=== PATIENT | male | born 1985 | race Caucasian/White ===

== ENCOUNTER 2017-09-12 10:05 | Inpatient (IN) | payer OTHER ==
[~2017-09-12] VITALS: Ht 175.3 cm; Wt 65.4 kg
[~2017-09-12 10:05] MED LIST: BENTYL20 MG PO; CIPRO500 MG PO; FLAGYL500 MG PO; FLEXERIL10 MG PO; MOTRIN600 MG PO; NAPROSYN500 MG PO; NOHOMEMEDS; ULTRAM50 MG PO
[2017-09-12 10:31] LABS: BASOPHIL (%) 0.6 % (0-1); EOSINOPHIL (%) 1.6 % (0-5); EOSINOPHIL COUNT 0.1 K/uL (0-0.3); HEMATOCRIT 38.6 % (38.0-50.0); HEMOGLOBIN 14.1 G/DL (12.5-16.6); IMMATURE GRANULOCYTE (%) 0.3 % (0.0-0.7); LYMPHOCYTE (%) 31.5 % (15-42); LYMPHOCYTE COUNT 2.2 K/uL (1.0-2.8); MCH 31.7 PG (29.0-34.0); MCHC 36.5 G/DL (30.0-36.0); MCV 86.7 FL (86-99); MONOCYTE (%) 6.4 % (3-12); MONOCYTE COUNT 0.5 K/uL (0-0.8); NEUTROPHIL (%) 59.6 % (45-76); NEUTROPHIL COUNT 4.2 K/uL (1.8-6.4); RBC DIS.WIDTH-CV 11.6 % (11.8-14.6); RBC DIS.WIDTH-SD 36.7 % (39-53); RED BLOOD COUNT 4.45 M/uL (4.00-5.50); WHITE BLOOD COUNT 7.1 K/uL (4.1-10.2)
[2017-09-12 11:12] LABS: AMYLASE 46 IU/L (1-118); CHLORIDE 103 MEQ/L (99-109); POTASSIUM 3.8 MEQ/L (3.7-5.4); SODIUM 138 MEQ/L (136-147)
[2017-09-12 11:20] LABS: CREATININE 0.9 MG/DL (0.6-1.3); GFR ESTIMATE (CALCULATED) > 59 mL/min/ (58.99-99999); GLUCOSE 97 mg/dL (70-99); LIPASE 84 U/L (1.0-51.0); SERUM ETHYL ALCOHOL < 10 mg/dL; UREA NITROGEN (BUN) 15 mg/dL (9-23)
[2017-09-12 13:15] LABS: INTER. NORMALIZED RATIO 1.1
[2017-09-12 13:17] LABS: PTT 26.2 SEC (25-37)
[2017-09-12 13:30] LABS: APPEARANCE CLEAR ((CLEAR)); BILIRUBIN NEGATIVE; BLOOD NEGATIVE; COLOR STRAW ((YELLOW)); GLUCOSE (STRIP) NEGATIVE; KETONES NEGATIVE; LEUKOCYTES NEGATIVE; NITRITE NEGATIVE; PROTEIN (STRIP) NEGATIVE; SPECIFIC GRAVITY 1.036 (1.000-1.030); UCUL ADDED? NO; UROBILINOGEN 0.2 MG/DL (0.2-1.0)
[2017-09-12 13:33] LABS: PLAT.SUFFICIENCY ADEQUATE; PLATELET CLUMPS PRESENT - PLATELET COUNT APPEARS ADQ.; PLATELET COUNT UNABLE TO REPORT K/uL (156-360)
[2017-09-12 13:41] LABS: AMPHETAMINE NEGATIVE (500 ng/mL); BARBITURATES NEGATIVE (200 ng/mL); BENZODIAZEPINES NEGATIVE (150 ng/mL); BUPRENORPHINE NEGATIVE (10 ng/mL); COCAINE NEGATIVE (150 ng/mL); METHADONE NEGATIVE (200 ng/mL); METHAMPHETAMINE NEGATIVE (500 ng/mL); OPIATES (MORPHINE) NEGATIVE (100 ng/mL); OXYCODONE NEGATIVE (100 ng/mL); PHENCYCLIDINE NEGATIVE (25 ng/mL); PROPOXYPHENE NEGATIVE (300 ng/mL); THC CANNABINOIDS NEGATIVE (50 ng/mL); TRICYCLIC ANTIDEPRESSANTS NEGATIVE (300 ng/mL)
[2017-09-12 15:07] VITALS: BP 129/70
[2017-09-12 19:28] VITALS: BP 130/69
[2017-09-13 00:09] VITALS: BP 129/69
[2017-09-13 04:20] VITALS: BP 125/66
[2017-09-13 07:10] LABS: HEMATOCRIT 37.9 % (38.0-50.0); HEMOGLOBIN 13.3 G/DL (12.5-16.6); MCH 30.9 PG (29.0-34.0); MCHC 35.1 G/DL (30.0-36.0); MCV 88.1 FL (86-99); PLATELET COUNT 231 K/uL (156-360); RBC DIS.WIDTH-CV 11.9 % (11.8-14.6); RBC DIS.WIDTH-SD 37.9 % (39-53); WHITE BLOOD COUNT 10.9 K/uL (4.1-10.2)
[2017-09-13 07:38] LABS: ALBUMIN 3.9 G/DL (3.2-4.8); ALKALINE PHOSPHATASE 52 IU/L (3-129); ALT (GPT) 22 IU/L (3-49); AST (GOT) 30 IU/L (2-34); CHLORIDE 103 MEQ/L (99-109); GFR ESTIMATE (CALCULATED) > 59 mL/min/ (58.99-99999); GLUCOSE 88 mg/dL (70-99); POTASSIUM 4.1 MEQ/L (3.7-5.4); SODIUM 137 MEQ/L (136-147); TOTAL PROTEIN 6.1 G/DL (6.4-8.3); UREA NITROGEN (BUN) 12 mg/dL (9-23)
[2017-09-13 09:28] VITALS: BP 130/77
[2017-09-13 09:30] VITALS: BP 133/77
[2017-09-13] MEDS ORDERED: COLACE100 MG PO (10:19)
[2017-09-13] MEDS ORDERED: DILAUDID4 MG PO (10:19)
[2017-09-13] MEDS ORDERED: ONDANSETRON HCL8 MG PO (10:19)
[2017-09-13] MEDS ORDERED: BACITRACIN-P28.35 GM TP (10:19)
== END 2017-09-13 13:30 | disposition home or self-care (01) | DRG 200 ==
LOC: TRA 10:05 → EDOF 11:31 → ENRESERV 11:40 → 3EAST 14:40
PROVIDERS: Emergency Medicine; Surgery
DX: S27.0XXA Traumatic pneumothorax, initial encounter (principal); S06.0X9A Concussion with loss of consciousness of unspecified duration, initial encounter; S27.329A Contusion of lung, unspecified, initial encounter; S00.01XA Abrasion of scalp, initial encounter; V47.0XXA Car driver injured in collision with fixed or stationary object in nontraffic accident, initial encounter; Z23 Encounter for immunization
CPT/HCPCS: 70450; 71045; 71046; 71260; 72020; 72125; 72129; 72132; 74177; 80048; 80053; 81003; 82150; 83690; 85025; 85027; 85610; 85730; 86850; 86900; 86901; 90686; 94799; 99281; 99285; G0480; J1170; J1644; J2310; J7120

== ENCOUNTER 2017-09-15 16:12 | Emergency (ER) | payer OTHER ==
[~2017-09-15] VITALS: Ht 175.3 cm; Wt 68.1 kg
[~2017-09-15 16:12] MED LIST changes: +BACITRACIN-P28.35 GM TP; +COLACE100 MG PO; +DILAUDID4 MG PO; +ONDANSETRON HCL8 MG PO
[2017-09-15 16:27] VITALS: BP 125/69
== END 2017-09-15 16:50 | disposition home or self-care (01) ==
LOC: EME 16:12
DX: R26.89 Other abnormalities of gait and mobility (principal); F07.81 Postconcussional syndrome
CPT/HCPCS: 99281; 99284

== ENCOUNTER 2017-11-02 16:02 | Emergency (ER) | payer SELFPAY ==
[~2017-11-02] VITALS: Ht 175.3 cm; Wt 65.8 kg
[2017-11-02] MEDS ORDERED: ZOFRAN ODT4 MG PO (16:38)
[2017-11-02 17:10] VITALS: BP 130/86
== END 2017-11-02 17:15 | disposition home or self-care (01) ==
LOC: EME 16:02
DX: S06.0X0D Concussion without loss of consciousness, subsequent encounter (principal)
CPT/HCPCS: 99281; 99284; J1885

== ENCOUNTER 2017-11-26 22:58 | Emergency (ER) | payer SELFPAY ==
[~2017-11-26] VITALS: Ht 175.3 cm; Wt 66.0 kg
[~2017-11-26 22:58] MED LIST changes: +ZOFRAN ODT4 MG PO
[2017-11-27] MEDS ORDERED: PROMETHAZINE HC25 M1 PO (03:00)
[2017-11-27] MEDS ORDERED: FIORICET 50-301 EAC1 PO (03:00)
[2017-11-27 03:24] VITALS: BP 135/79
== END 2017-11-27 03:26 | disposition home or self-care (01) ==
LOC: EME 22:58
DX: F07.81 Postconcussional syndrome (principal)
CPT/HCPCS: 99281; 99284; J1885

== ENCOUNTER 2018-04-01 00:56 | Emergency (ER) | payer SELFPAY ==
[~2018-04-01] VITALS: Ht 175.3 cm; Wt 68.5 kg
[~2018-04-01 00:56] MED LIST changes: +FIORICET 50-301 EAC1 PO; +PROMETHAZINE HC25 M1 PO
[2018-04-01 02:56] LABS: BASOPHIL (%) 0.8 % (0-1); BASOPHIL COUNT 0.1 K/uL (0-0.1); EOSINOPHIL (%) 3.3 % (0-5); EOSINOPHIL COUNT 0.3 K/uL (0-0.3); HEMATOCRIT 40.9 % (38.0-50.0); HEMOGLOBIN 14.5 G/DL (12.5-16.6); IMMATURE GRANULOCYTE (%) 0.1 % (0.0-0.7); LYMPHOCYTE (%) 32.8 % (15-42); LYMPHOCYTE COUNT 2.5 K/uL (1.0-2.8); MCH 30.8 PG (29.0-34.0); MCHC 35.5 G/DL (30.0-36.0); MCV 86.8 FL (86-99); MONOCYTE (%) 7.3 % (3-12); MONOCYTE COUNT 0.6 K/uL (0-0.8); NEUTROPHIL (%) 55.7 % (45-76); NEUTROPHIL COUNT 4.2 K/uL (1.8-6.4); PLATELET COUNT 266 K/uL (156-360); RBC DIS.WIDTH-CV 11.6 % (11.8-14.6); RBC DIS.WIDTH-SD 37.2 % (39-53); RED BLOOD COUNT 4.71 M/uL (4.00-5.50); WHITE BLOOD COUNT 7.6 K/uL (4.1-10.2)
[2018-04-01 03:03] LABS: D-DIMER ELISA < 150.00 ng/mLDDU (<230)
[2018-04-01 03:10] LABS: CHLORIDE 104 mEq/L (99-109); POTASSIUM 3.9 mEq/L (3.7-5.4); SODIUM 139 mEq/L (136-147)
[2018-04-01 03:12] LABS: GLUCOSE 90 mg/dL (70-99)
[2018-04-01 03:16] LABS: GFR ESTIMATE (CALCULATED) > 59 mL/min/ (58.99-99999)
[2018-04-01 03:17] LABS: UREA NITROGEN (BUN) 17 mg/dL (9-23)
[2018-04-01 03:18] LABS: CREATINE KINASE 127 IU/L (1-294)
[2018-04-01] MEDS ORDERED: INDOCIN50 MG PO (03:21)
[2018-04-01 03:49] VITALS: BP 121/70
== END 2018-04-01 03:50 | disposition home or self-care (01) ==
LOC: EME 00:56
PROVIDERS: Physician Assistant
DX: R07.81 Pleurodynia (principal)
CPT/HCPCS: 71046; 80048; 82550; 85025; 85379